=== PATIENT | female | born 1990 | race Hispanic/Latino ===

== ENCOUNTER → 2016-08-03 | Outpatient (CLI) | payer OTHER ==
--- NOTE | 2016-08-03 08:15 | REP ---
Clinical: Right upper quadrant abdominal pain. Technique: Zamarripa scale ultrasound using curved array transducer. Findings: The liver and pancreas are normal in contour, size, and echogenicity without focal hepatic or pancreatic lesions identified. There is suggestion for a small 1.2 cm hemangioma in the right lobe of the liver. The gallbladder is normal without gallstones, wall thickening or pericholecystic fluid. No biliary ductal dilatation is appreciated, and the common bile duct measures 3.9 mm diameter. The right kidney is normal in reniform shape without hydronephrosis and measures 9.9 x 5.9 x 4.7 cm. No ascites. Visualized portions of the abdominal aorta normal. Impression: Normal right upper quadrant and gallbladder abdominal ultrasound. Signed by Chris Howell MD 08/03/2016 08:05 A
--- NOTE | 2016-08-03 11:15 | REP ---
Hepatobiliary scan and gallbladder ejection fraction: History: Upper abdominal pain and nausea. Technique: 6.6 mCi of technetium-99m mebrofenin was injected and sequential anterior images are acquired. 65 minutes after the mebrofenin injection, the patient consumed 8 ounces Ensure and an additional 60 minutes of imaging was acquired. Regions of interest are plotted around the gallbladder. Findings: The initial hepatocellular parenchymal uptake phase is normal and homogeneous. Intra- and extra-hepatic bile ducts and duodenum are labeled by the 10 -minute image. The gallbladder is first labeled on the 15 -minute image. There is normal washout from the liver parenchyma into the gallbladder and small intestine on subsequent images. The gallbladder ejection fraction is 43 %. Values greater than 35 % are considered normal with this technique. Impression: Normal hepatobiliary scan and normal gallbladder ejection fraction. Signed by Rodger Alba MD 08/03/2016 11:06 A
== END ==
LOC: M RAD 07:22
PROVIDERS: ATTEND Physician Assistant Medical
DX: R10.10 Upper abdominal pain, unspecified (principal); R11.0 Nausea
CPT/HCPCS: 76705; J2805

== ENCOUNTER → 2016-08-11 | Outpatient (CLI) | payer OTHER ==
[~2016-08-11] VITALS: Ht 154.9 cm; Wt 76.6 kg
[~2016-08-11] MED LIST: COLA100C3 PO; LIDOCAINE 2% INJ 100 MG/5 ML SYRINGE As Ordered ONE; MIRA33504 PO; NS 1,000 ML IV ONE; PANT40TA2 PO; PROPOFOL 200 MG/20 ML VIAL As Ordered ONE; PROPOFOL 500 MG/50 ML VIAL As Ordered ONE
--- NOTE | 2016-08-11 12:33 | ROOR ---
Patient Name: Ambrose Lindsey Procedure Date: 08/11/2016 12:16 PM Date of : 1990 Age: 25 Room: [facility] Gender: Female Note Status: Finalized Procedure: Upper GI endoscopy Indications: Dyspepsia, Heartburn Providers: Chris RITCHIE MD Referring MD: RENETAT JACKSON MD Requesting Provider: Medicines: Monitored Anesthesia Care Complications: No immediate complications. Procedure: Pre-Anesthesia Assessment: - The heart rate, respiratory rate, oxygen saturations, blood pressure, adequacy of pulmonary ventilation, and response to care were monitored throughout the procedure. The Endoscope was introduced through the mouth, and advanced to the second part of duodenum. The upper GI endoscopy was accomplished without difficulty. The patient tolerated the procedure well. Findings: The esophagus was normal. The stomach was normal. The examined duodenum was normal. Impression: - Normal esophagus. - Normal stomach. - Normal examined duodenum. - No specimens collected. Recommendation: - Follow an antireflux regimen. - Continue present medications. Chris Ritchie MD Chris RITCHIE MD 08/11/2016 12:33:07 PM This report has been signed electronically. Number of Addenda: 0 Note Initiated On: 08/11/2016 12:16 PM Estimated Blood Loss: Estimated blood loss: none.
--- NOTE | 2016-08-11 12:46 | ROOR ---
Patient Name: Ambrose Lindsey Procedure Date: 08/11/2016 12:16 PM Date of : 1990 Age: 25 Room: OP02 Gender: Female Note Status: Finalized Procedure: Colonoscopy Indications: Generalized abdominal pain, Abnormal CT of the GI tract, Irritable bowel syndrome with constipation, Constipation Providers: Chris RITCHIE MD Referring MD: RENETTA JACKSON MD Requesting Provider: Medicines: Monitored Anesthesia Care Complications: No immediate complications. Procedure: Pre-Anesthesia Assessment: - The heart rate, respiratory rate, oxygen saturations, blood pressure, adequacy of pulmonary ventilation, and response to care were monitored throughout the procedure. The Colonoscope was introduced through the anus and advanced to 5 cm into the ileum. The colonoscopy was performed without difficulty. The patient tolerated the procedure well. The quality of the bowel preparation was good. Findings: The perianal and digital rectal examinations were normal. The colon (entire examined portion) appeared normal. The terminal ileum appeared normal. Small Internal Hemorrhoids. Impression: - The entire colon is normal. - The terminal ileum was normal. - Small Internal Hemorrhoids. - No specimens collected. Recommendation: - Miralax 1 capful (17 grams) in 8 ounces of water twice a day. - Lactose free diet. Chris Ritchie MD Chris RITCHIE MD 08/11/2016 12:45:49 PM This report has been signed electronically. Number of Addenda: 0 Note Initiated On: 08/11/2016 12:16 PM Estimated Blood Loss: Estimated blood loss: none.
[2016-08-11 13:12] VITALS: BP 98/60
== END | disposition home or self-care (01) ==
LOC: M OPP 11:15
PROVIDERS: ATTEND Internal Medicine Gastroenterology
DX: R93.3 Abnormal findings on diagnostic imaging of other parts of digestive tract (principal); K58.1 Irritable bowel syndrome with constipation; K62.5 Hemorrhage of anus and rectum; R10.84 Generalized abdominal pain; K64.8 Other hemorrhoids; K30 Functional dyspepsia; R12 Heartburn; K21.9 Gastro-esophageal reflux disease without esophagitis; J45.909 Unspecified asthma, uncomplicated; Z79.899 Other long term (current) drug therapy

== ENCOUNTER → 2017-03-21 | Outpatient (CLI) | payer OTHER ==
[~2017-03-21] MED LIST changes: -COLA100C3 PO; +COLA100C5 PO; -LIDOCAINE 2% INJ 100 MG/5 ML SYRINGE As Ordered ONE; -NS 1,000 ML IV ONE; -PROPOFOL 200 MG/20 ML VIAL As Ordered ONE; -PROPOFOL 500 MG/50 ML VIAL As Ordered ONE
--- NOTE | 2017-03-21 17:55 | REP ---
Clinical: Lower back pain. Technique: AP angled and lateral views of the sacrum and coccyx. Findings: No acute fracture or subluxation. Sacroiliac joints appear symmetric and normal. Impression: Normal sacral coccygeal x-ray series. Signed by Chris Howell MD 03/21/2017 05:46 P
--- NOTE | 2017-03-21 17:55 | REP ---
Clinical: Acute back pain . Technique: AP, lateral, bilateral oblique, and coned-down views. Findings: Alignment and lordosis is maintained. The vertebral bodies including transverse process and spinous processes are intact and normal. There is no evidence for acute fracture / compression injury or subluxation. No evidence for spondylolysis or spondylolisthesis. No significant degenerative change is noted. Impression: Normal lumbosacral spine radiograph series. Signed by Chris Howell MD 03/21/2017 05:46 P
== END ==
LOC: M LRY 17:17
PROVIDERS: ATTEND Nurse Practitioner Family
DX: M54.5 Low back pain (principal)

== ENCOUNTER → 2017-03-24 | Outpatient (CLI) | payer OTHER ==
[2017-03-24 17:35] LABS: ESTIMATED AVERAGE GLUCOSE 114 MG/DL (60-110)
[2017-03-24 18:24] LABS: ANION GAP 6 MEQ/L (8-16); BLOOD UREA NITROGEN 11 MG/DL (7-18); CARBON DIOXIDE LEVEL 30 MEQ/L (21-32); CHLORIDE LEVEL 103 MEQ/L (98-107); CREATININE FOR GFR 0.62 MG/DL (0.55-1.02); GLOMERULAR FILTRATION RATE > 60.0 (>60); GLUCOSE, FASTING 77 MG/DL (70-105); POTASSIUM SERUM 4.6 MEQ/L (3.5-5.1); SODIUM LEVEL 139 MEQ/L (136-145)
[2017-03-24 18:26] LABS: FOLLICLE STIMULATING HORMONE 3.1 mIU/mL
== END ==
LOC: M LAB 16:25
DX: F32.81 Premenstrual dysphoric disorder (principal); N92.0 Excessive and frequent menstruation with regular cycle; R10.2 Pelvic and perineal pain
CPT/HCPCS: 76856

== ENCOUNTER → 2017-04-03 | Outpatient (CLI) | payer OTHER ==
[2017-04-04 12:17] LABS: TESTOSTERONE 21 NG/DL (14-76)
[2017-04-04 12:17] LABS: TOTAL 25(OH) VITAMIN D 20.3 NG/ML (30.0-100.0)
== END ==
LOC: M LRY 16:21
DX: F32.81 Premenstrual dysphoric disorder (principal)
CPT/HCPCS: 84403